=== PATIENT | male | born 1970 | race Caucasian/White ===

== ENCOUNTER 2016-10-05 10:14 | Emergency (ER) | payer SELFPAY ==
[~2016-10-05] VITALS: Wt 84.1 kg
--- NOTE | 2016-10-05 10:58 | ERD ---
ER Documentation Chief Complaint Date/Time DATE: 10/05/16 Chief Complaint Fall last week, now pain to both legs and right ankle HPI The patient is a 46-year-old male who presents to the Emergency Department with complaint of pain to both pretibial regions and the right ankle s/p mechanical fall. The patient reports that one week ago, while at work, he accidentally tripped and fell while on an escalator, sustaining abrasions to bilateral pretibial regions, and pain to the legs and posterior to the right lateral malleolus. He notes that his pain is worse with ambulation and palpation, and is improved at rest. The patient has been applying topical antibiotic to his wounds, which appear to be scabbed over and healing, but he has noted development of increased erythema, warmth and swelling to the lower extremities , surrounding the area of the wounds. He denies any spontaneous drainage or continued bleeding. Denies numbness, paresthesias or weakness of the distal extremities. Denies any restricted range of motion. Denies any fevers, sweats, chills, nausea or vomiting. He rates his current pain as 7 out of 10, describes it is throbbing in nature, localized to the lower extremities. He has not yet taken any medication for pain relief. Tetanus status is not up-to-date. ROS All systems reviewed and are negative except as per history of present illness. Medications Home Meds Active Scripts Ibuprofen* (Motrin*) 600 Mg Tab, 600 MG PO Q6, #30 TAB Prov:CHASE YU PA-C 10/05/16 Cephalexin* (Cephalexin*) 500 Mg Capsule, 500 MG PO Q6 for 7 Days, #28 CAP Prov:CHASE YU PA-C 10/05/16 Sulfamethoxazole/Trimethoprim* (Bactrim Ds* Tablet) 1 Each Tablet, 1 TAB PO BID , #10 TAB Prov:CHASE YU PA-C 10/05/16 Allergies Allergies: Coded Allergies: No Known Allergy (Unverified , 10/05/16) PMhx/Soc Medical and Surgical Hx: pt denies Medical Hx, pt denies Surgical Hx Hx Alcohol Use: Yes Hx Substance Use: No Hx Tobacco Use: No Smoking Status: Never smoker Physical Exam Vitals Vital Signs Date Time Temp Pulse Resp B/P Pulse Ox O2 Delivery O2 Flow Rate FiO2 10/05/16 10:17 98.5 89 20 127/84 98 Physical Exam GENERAL: Well-developed, well-nourished, male, in no acute distress. HEENT: Head is normocephalic, atraumatic. No scleral pallor or icterus. Pupils equal, round and reactive to light. Conjunctiva pink. Moist mucous membranes. NECK: Supple. RESPIRATORY: Lungs are clear to auscultation bilaterally. Equal breath sounds. Normal expiratory effort. CARDIOVASCULAR: Regular rate and rhythm. S1 and S2 normal. GASTROINTESTINAL: Abdomen is soft, non-tender, and non-distended. BACK: No midline tenderness. EXTREMITIES: No clubbing or cyanosis. Normal skin perfusion. Mild edema of the right lateral ankle. No pain on palpation of the distal aspect of the fibula or tibia. No pain on palpation posterior to the lateral malleolus. The ankle and foot is neurovascularly intact. 5/5 sensation and motor of the upper and lower extremities bilaterally. Full range of motion of the upper extremities. Muscle tone is normal. No erythema noted. Anterior drawer test negative. Talar tilt test negative. Compartments are soft. Distal pulses are palpable, 2+ bilaterally. Capillary refill is less than 2 seconds. See Integument Exam. NEUROLOGIC: The patient is alert, awake, and oriented x 3. No focal neurologic deficits. INTEGUMENT: 4 cm linear, healing, scabbed abrasion to the right pretibial area , with surrounding region of erythema, warmth, swelling and tenderness to palpation. No crepitus. No drainage. No bleeding. 2 cm linear, scabbed abrasion to the left pretibial area with mild surrounding erythema, warmth and tenderness. Compartments are soft. PSYCHIATRIC: Normal mood and mentation. Results 24 hrs Current Medications Medications (Trade) Dose Ordered Sig/Simon Route PRN Reason Start Time Stop Time Status Last Admin Dose Admin Ibuprofen (Motrin) 600 mg ONCE ONCE PO 10/05/16 11:00 10/05/16 11:01 DC 10/05/16 10:54 Trimethoprim/ Sulfamethoxazole (Bactrim (Ds)) 1 tab ONCE ONCE PO 10/05/16 11:00 10/05/16 11:01 DC 10/05/16 10:53 Cephalexin (Keflex) 500 mg ONCE ONCE PO 10/05/16 11:00 10/05/16 11:01 DC 10/05/16 10:53 Diphtheria/ Tetanus/Acell Pertussis (Adacel) 0.5 ml ONCE ONCE IM* 10/05/16 11:00 10/05/16 11:01 DC 10/05/16 10:55 Bacitracin (Bacitracin Oint (Ud)) 1 applic ONCE ONCE TOP 10/05/16 11:00 10/05/16 11:01 DC 10/05/16 10:54 Procedures/MDM EMERGENCY DEPARTMENT COURSE: The patient was stable throughout the ED course. The patient's wounds were cleansed. Bacitracin and dressings were applied. X- ray imaging performed. The patient was given a dose of Ibuprofen 600 mg, Keflex 500 mg and Bactrim DS in the ED. On reevaluation, the patient reports no new complaints and decreased pain. Tdap updated. DIAGNOSTIC TESTS AND INTERPRETATION: PROCEDURE: XR Right Ankle. CLINICAL INDICATION: Trauma. Right ankle pain. TECHNIQUE: 3 views. Frontal, lateral, and oblique. COMPARISON: None. FINDINGS: There is no fracture or dislocation. There is soft tissue swelling around the ankle. Articular surfaces are intact. There is no lytic or blastic lesion. There is no radiopaque foreign body. IMPRESSION: 1. Soft tissue swelling around the right ankle. 2. Otherwise unremarkable images of the right ankle. .Vishnu Nice MD, MD Date Time Electronically viewed and signed by .Vishnu Nice MD, on 10/05/2016 11:52 PROCEDURE: XR Left Tibia and Fibula. CLINICAL INDICATION: Trauma. Left lower leg pain. TECHNIQUE: Two views. Frontal and lateral. COMPARISON: No prior studies are available for comparison. FINDINGS: There is no fracture or dislocation. There is soft tissue swelling around the ankle. Articular surfaces are intact. There is no lytic or blastic lesion. There is no radiopaque foreign body. IMPRESSION: 1. Soft tissue swelling around the ankle. 2. Otherwise unremarkable images of the left tibia and fibula. .Vishnu Nice MD, MD Date Time Electronically viewed and signed by .Vishnu Nice MD, MD on 10/05/2016 11:50 PROCEDURE: XR Right Tibia and Fibula. CLINICAL INDICATION: Trauma. Right lower leg pain. TECHNIQUE: Two views. Frontal and lateral. COMPARISON: No prior studies are available for comparison. FINDINGS: There is no fracture or dislocation. There is soft tissue swelling around the ankle. Articular surfaces are intact. There is no lytic or blastic lesion. There is no radiopaque foreign body. IMPRESSION: 1. Soft tissue swelling around the ankle. 2. Otherwise unremarkable images of the right tibia and fibula. .Vishnu Ncie MD, MD Date Time Electronically viewed and signed by .Vishnu Nice MD, MD on 10/05/2016 11:51 MEDICAL DECISION MAKING: This is a 46-year-old male presenting to the emergency department with complaint of spreading erythema surrounding recent abrasions sustained s/p mechanical fall on an escalator one week ago. The patient had abrasions to his pretibial regions with surrounding spreading erythema that is warm to touch and tender to palpation on physical examination. However, the patient's oropharynx and airway was patent, and he exhibited no breathing difficulties, wheezing, tongue swelling or lip swelling. His vital signs were stable, and he was afebrile, with no recent history of fevers or chills. The differential diagnosis includes, but is not limited to, allergic reaction, insect bite, fungal infection, cellulitis, MRSA, impetigo, shingles, herpes simplex virus, burn, abscess, dermatitis, viral syndrome, candidiasis, medication reaction, Michael Roque syndrome, epidermolysis bullosa, toxic epidermal necrolysis, meningococcemia. X-ray imaging performed, with no evidence of fracture, dislocation, subluxation. After rest and administration of Ibuprofen, Keflex, Bactrim DS, the patient has no new complaints, and the patient remains stable with appropriate vital signs and no signs of respiratory distress. Tdap updated. Upon my review and interpretation of the patient's presentation and overall ER course, I believe the patient's symptoms are most consistent with abrasions with surrounding cellulitis. At this time the patient is in stable condition and therefore can be discharged home with prescriptions for Ibuprofen, Bactrim and Keflex, and strict return precautions for signs of deteriorating or worsening condition. The patient is strongly advised to follow up with a primary care provider within 1-2 days for reevaluation and further management, or return to the ER sooner for any new or worsening symptoms. Additionally, he is advised to return sooner if she notices the erythema spreading beyond the current borders. I shared my medical decision making and plan with the patient at length and in great detail, and he verbally understands and agrees with the plan for further observation and care as an outpatient. At the time of discharge all questions were answered. Departure Diagnosis: Primary Impression: Cellulitis of right leg Additional Impressions: Abrasion of left lower leg Encounter type: initial encounter Qualified Code: S80.812A - Abrasion of left lower leg, initial encounter Abrasion of right lower leg Encounter type: initial encounter Qualified Code: S80.811A - Abrasion of right lower leg, initial encounter Cellulitis of left lower leg Condition: Stable Patient Instructions: Abrasion, Cellulitis Additional Instructions: Llame al doctor MAANA y stefania jonelle JAIRO PARA DENTRO DE 1-2 MILLAN.Dgale a la secretaria que nosotros le instruimos hacer esta jairo.Avise o llame si baeza condicin se empeora antes de la jairo. Regresa aqui si peor o no mejor. CHASE YU PA-C Oct 05, 2016 10:58
[2016-10-05] MEDS ORDERED: BACITRACIN 0.9 GM OINT TOP ONE (11:00)
[2016-10-05] MEDS ORDERED: TRIMETHOPRIM/SULFAMETHOX (DS) TAB PO ONE (11:00)
[2016-10-05] MEDS ORDERED: DIPHTH/TET/ACEL PERTUSS (ADULT) 0.5 ML VIAL IM* ONE (11:00)
[2016-10-05] MEDS ORDERED: IBUPROFEN 600 MG TAB PO ONE (11:00)
[2016-10-05] MEDS ORDERED: CEPHALEXIN 500 MG CAP PO ONE (11:00)
--- NOTE | 2016-10-05 11:50 | RADRPT ---
PROCEDURE: XR Left Tibia and Fibula. CLINICAL INDICATION: Trauma. Left lower leg pain. TECHNIQUE: Two views. Frontal and lateral. COMPARISON: No prior studies are available for comparison. FINDINGS: There is no fracture or dislocation. There is soft tissue swelling around the ankle. Articular surfaces are intact. There is no lytic or blastic lesion. There is no radiopaque foreign body. IMPRESSION: 1. Soft tissue swelling around the ankle. 2. Otherwise unremarkable images of the left tibia and fibula. RPTAT: QQ .Vishnu Nice MD, MD Date Time Electronically viewed and signed by .Vishnu Nice MD, MD on 10/05/2016 11:50 .R/
--- NOTE | 2016-10-05 11:51 | RADRPT ---
PROCEDURE: XR Right Tibia and Fibula. CLINICAL INDICATION: Trauma. Right lower leg pain. TECHNIQUE: Two views. Frontal and lateral. COMPARISON: No prior studies are available for comparison. FINDINGS: There is no fracture or dislocation. There is soft tissue swelling around the ankle. Articular surfaces are intact. There is no lytic or blastic lesion. There is no radiopaque foreign body. IMPRESSION: 1. Soft tissue swelling around the ankle. 2. Otherwise unremarkable images of the right tibia and fibula. RPTAT: QQ .Vishnu Nice MD, MD Date Time Electronically viewed and signed by .Vishnu Nice MD, MD on 10/05/2016 11:51 .R/
--- NOTE | 2016-10-05 11:52 | RADRPT ---
PROCEDURE: XR Right Ankle. CLINICAL INDICATION: Trauma. Right ankle pain. TECHNIQUE: 3 views. Frontal, lateral, and oblique. COMPARISON: None. FINDINGS: There is no fracture or dislocation. There is soft tissue swelling around the ankle. Articular surfaces are intact. There is no lytic or blastic lesion. There is no radiopaque foreign body. IMPRESSION: 1. Soft tissue swelling around the right ankle. 2. Otherwise unremarkable images of the right ankle. RPTAT: QQ .Vishnu Nice MD, Date Time Electronically viewed and signed by .Vishnu Nice MD, on 10/05/2016 11:52 .R/
[2016-10-05] MEDS ORDERED: CEPH500C PO (12:07)
[2016-10-05] MEDS ORDERED: SULF1TAB31 PO (12:07)
[2016-10-05] MEDS ORDERED: IBUP-1542 PO (12:08)
== END 2016-10-05 12:36 | disposition home or self-care (01) ==
LOC: EDBD 10:14 → FTE 10:14
DX: S80.811A Abrasion, right lower leg, initial encounter (principal); L03.115 Cellulitis of right lower limb; L03.116 Cellulitis of left lower limb; S80.812A Abrasion, left lower leg, initial encounter; W01.198A Fall on same level from slipping, tripping and stumbling with subsequent striking against other object, initial encounter; Y92.89 Other specified places as the place of occurrence of the external cause; Z23 Encounter for immunization
CPT/HCPCS: 73590; 90471; 90715